=== PATIENT | female | born 1985 | race Caucasian/White ===

== ENCOUNTER 2021-07-25 18:02 | Emergency (ER) | payer BC ==
[2021-07-25 18:55] LABS: #Eosinphils 0.1 10x3/uL (0.0-0.5); #Monocytes 0.6 10x3/uL (0.0-1.1); #Neutrophils 5.3 10x3/uL (1.5-8.4); %Basophils 0.4 % (0.0-2.0); %Eosinophils 0.9 % (0.0-6.0); %Lymphocytes 26.4 % (18.0-47.0); %Monocytes 7.3 % (0.0-10.0); %Neutrophils 64.6 % (40.0-75.0); Hemoglobin 13.9 g/dL (12.0-15.5); Mean Corpuscular HGB CONC 32.9 g/dL (32.0-36.0); Mean Corpuscular Hemoglobin 32.5 pg (27.0-33.0); Mean Corpuscular Volume 98.8 fl (81.6-98.3); Mean Platelet Volume 9.6 fl (7.4-10.4); Platelet Count 244 10x3/uL (150-450); RBC Distribution Width 11.9 % (11.5-14.5); Red Blood Cell (RBC) Count 4.28 10x6/uL (3.90-5.03); White Blood Cell (WBC) Count 8.1 10x3/uL (3.5-10.5)
== END 2021-07-25 20:05 | disposition home or self-care (01) ==
LOC: CSHERS 18:02
DX: O20.0 Threatened abortion (principal); Z3A.01 Less than 8 weeks gestation of pregnancy
CPT/HCPCS: 76856; 84702; 85025; 86900; 86901

== ENCOUNTER 2021-12-25 01:53 | Day surgery (SDC) | payer BC ==
[2021-12-25 02:16] VITALS: BMI 31.4
[2021-12-25] MEDS ORDERED: hydrALAZINE 20 MG/ML VIAL SLOW IVP PRN (02:51)
[2021-12-25 03:15] LABS: #Eosinphils 0.2 10x3/uL (0.0-0.5); #Monocytes 0.8 10x3/uL (0.0-1.1); #Neutrophils 6.2 10x3/uL (1.5-8.4); %Basophils 0.4 % (0.0-2.0); %Eosinophils 1.7 % (0.0-6.0); %Lymphocytes 25.1 % (18.0-47.0); %Monocytes 7.9 % (0.0-10.0); Hemoglobin 11.5 g/dL (12.0-15.5); Mean Corpuscular HGB CONC 34.2 g/dL (32.0-36.0); Mean Corpuscular Hemoglobin 33.7 pg (27.0-33.0); Mean Corpuscular Volume 98.5 fl (81.6-98.3); Platelet Count 212 10x3/uL (150-450); RBC Distribution Width 12.3 % (11.5-14.5); Red Blood Cell (RBC) Count 3.41 10x6/uL (3.90-5.03); White Blood Cell (WBC) Count 9.6 10x3/uL (3.5-10.5)
[2021-12-25 03:29] LABS: ALT (SGPT) 17 U/L (8-55); AST (SGOT) 12 U/L (5-34); Albumin 3.6 g/dL (3.5-5.0); Alkaline Phosphatase 95 U/L (40-110); Anion Gap 16 mmol/L (10-20); BUN (Urea Nitrogen) 9 mg/dL (7.0-18.7); Bilirubin, Total 0.2 mg/dL (0.2-1.2); Calc. Creatinine Clearance 182 mL/min (70-130); Calcium 9.4 mg/dL (7.8-10.44); Carbon Dioxide 20 mmol/L (22-29); Chloride 106 mmol/L (98-107); Globulin 3.1 g/dL (2.4-3.5); Glucose 88 mg/dL (70-105); Potassium 3.5 mmol/L (3.5-5.1); Protein, Total 6.7 g/dL (6.0-8.3); Sodium 138 mmol/L (136-145)
[2021-12-25 03:41] LABS: Creatinine, Urine Less than 20.00 mg/dL (47-110); Protein, Urine Random Quant Less than 10 mg/dL (1-14)
== END 2021-12-25 04:31 | disposition home or self-care (01) ==
LOC: CSHLD/OP 01:53
PROVIDERS: ATTEND Obstetrics & Gynecology
DX: O10.913 Unspecified pre-existing hypertension complicating pregnancy, third trimester (principal); O99.353 Diseases of the nervous system complicating pregnancy, third trimester; G43.909 Migraine, unspecified, not intractable, without status migrainosus; O99.343 Other mental disorders complicating pregnancy, third trimester; F31.9 Bipolar disorder, unspecified; O09.523 Supervision of elderly multigravida, third trimester; Z3A.28 28 weeks gestation of pregnancy; Z79.82 Long term (current) use of aspirin; Z79.899 Other long term (current) drug therapy; Z88.2 Allergy status to sulfonamides; Z91.040 Latex allergy status
CPT/HCPCS: 36415; 80053; 80178; 82570; 84156; 85025

== ENCOUNTER 2022-01-29 20:40 | Inpatient (IN) | payer BC ==
[2022-01-29] MEDS ORDERED: hydrALAZINE 20 MG/ML VIAL SLOW IVP PRN (21:01)
[2022-01-29 21:06] VITALS: BMI 31.6
[2022-01-29] MEDS ORDERED: Lorazepam 2 MG/ML VIAL SLOW IVP PRN (21:16)
[2022-01-29] MEDS ORDERED: Butorphanol Tartrate 1 MG/ML VIAL SLOW IVP PRN (21:16)
[2022-01-29] MEDS ORDERED: Calcium Gluc 4.6 MEQ/10 ML (100 MG/ML) SLOW IVP PRN (21:16)
[2022-01-29] MEDS ORDERED: Ondansetron PF 4 MG/2 ML Vial IVP PRN (21:16)
[2022-01-29] MEDS ORDERED: Promethazine HCl 25 MG/ML VIAL IM PRN (21:16)
[2022-01-29] MEDS ORDERED: Lactated Ringer's 1,000 ML IV SCH (21:30)
[2022-01-29] MEDS ORDERED: diphenhydrAMINE 50 MG/ML VIAL IVP SCH (21:30)
[2022-01-29] MEDS ORDERED: Metoclopramide HCl 10 MG/2 ML VIAL IVP SCH (21:30)
[2022-01-29 21:45] LABS: Creatinine, Urine 44.15 mg/dL (47-110); Protein, Urine Random Quant Less than 10 mg/dL (1-14)
[2022-01-29] MEDS: Betamet Acet/Betamet Na Ph 30 MG/5 ML VIAL IM SCH (21:58)
[2022-01-29] MEDS ORDERED: NIFEdipine XL 60 MG TAB PO SCH (22:00)
[2022-01-29] MEDS: Magnesium Sulfate 20 gm/500 ml 20 GM/500 ML BAG IVPB SCH (22:10)
[2022-01-29 22:17] LABS: #Eosinphils 0.1 10x3/uL (0.0-0.5); #Monocytes 0.7 10x3/uL (0.0-1.1); #Neutrophils 5.5 10x3/uL (1.5-8.4); %Basophils 0.4 % (0.0-2.0); %Eosinophils 0.9 % (0.0-6.0); %Lymphocytes 25.3 % (18.0-47.0); %Monocytes 7.8 % (0.0-10.0); Hemoglobin 11.8 g/dL (12.0-15.5); Mean Corpuscular HGB CONC 34.5 g/dL (32.0-36.0); Mean Corpuscular Hemoglobin 33.2 pg (27.0-33.0); Mean Corpuscular Volume 96.3 fl (81.6-98.3); Mean Platelet Volume 10.8 fl (7.4-10.4); Platelet Count 196 10x3/uL (150-450); RBC Distribution Width 12.9 % (11.5-14.5); Red Blood Cell (RBC) Count 3.55 10x6/uL (3.90-5.03); White Blood Cell (WBC) Count 8.5 10x3/uL (3.5-10.5)
[2022-01-29 22:27] LABS: ALT (SGPT) 13 U/L (8-55); AST (SGOT) 14 U/L (5-34); Albumin 3.6 g/dL (3.5-5.0); Alkaline Phosphatase 131 U/L (40-110); Anion Gap 14 mmol/L (10-20); BUN (Urea Nitrogen) 9 mg/dL (7.0-18.7); Bilirubin, Total 0.2 mg/dL (0.2-1.2); Calc. Creatinine Clearance 189 mL/min (70-130); Calcium 9.1 mg/dL (7.8-10.44); Carbon Dioxide 19 mmol/L (22-29); Chloride 108 mmol/L (98-107); Estimated GFR 120; Globulin 2.6 g/dL (2.4-3.5); Glucose 94 mg/dL (70-105); Potassium 3.7 mmol/L (3.5-5.1); Protein, Total 6.2 g/dL (6.0-8.3); Sodium 137 mmol/L (136-145)
[2022-01-29 22:46] LABS: Hep B Surf Ag Non-Reactive S/CO (NonReactive); Syphilis Antibody Nonreactive (Nonreactive); Syphilis Antibody Index 0.02 S/CO (<1.00 Non-Reactive)
[2022-01-29 22:48] LABS: HBSAg Index 0.18 S/CO (0-0.99)
[2022-01-29] MEDS ORDERED: valACYclovir 500 MG TAB PO SCH ×2 (22:54→23:15)
[2022-01-29] MEDS ORDERED: Aspirin Chewable 81 MG TAB PO SCH (23:15)
[2022-01-29] MEDS ORDERED: Prenatal Vitamin 1 TAB PO SCH (23:15)
[2022-01-30 03:47] LABS: SARS-CoV-2 NAA Rapid Test DETECTED (NotDetected)
[2022-01-30] MEDS ORDERED: Acetaminophen 500 MG TAB PO SCH (05:45)
[2022-01-30] MEDS: Magnesium Sulfate 20 gm/500 ml 20 GM/500 ML BAG IVPB SCH (06:39)
[2022-01-30] MEDS ORDERED: valACYclovir 500 MG TAB PO SCH ×2 (09:00)
[2022-01-30] MEDS ORDERED: Prenatal Vitamin 1 TAB PO SCH (09:00)
[2022-01-30] MEDS ORDERED: Aspirin Chewable 81 MG TAB PO SCH (09:00)
[2022-01-30] MEDS: Betamet Acet/Betamet Na Ph 30 MG/5 ML VIAL IM SCH (18:03)
== END 2022-01-30 18:18 | disposition home or self-care (01) | DRG 831 ==
LOC: CSHLD/OP 20:40 → CSHLD 21:17 → OBSVTOIN 21:18 → UNDOADMOB 01-30 00:57 → CSHLD 01-30 00:57
PROVIDERS: ADMIT Obstetrics & Gynecology; ATTEND Obstetrics & Gynecology
PROC: 8E0ZXY6 Isolation (ICD-10-PCS; principal; 2022-01-29)
DX: O11.3 Pre-existing hypertension with pre-eclampsia, third trimester (principal); U07.1 COVID-19; O98.513 Other viral diseases complicating pregnancy, third trimester; F31.9 Bipolar disorder, unspecified; F41.9 Anxiety disorder, unspecified; G43.909 Migraine, unspecified, not intractable, without status migrainosus; O99.353 Diseases of the nervous system complicating pregnancy, third trimester; O10.913 Unspecified pre-existing hypertension complicating pregnancy, third trimester; O99.343 Other mental disorders complicating pregnancy, third trimester; O24.410 Gestational diabetes mellitus in pregnancy, diet controlled; B00.9 Herpesviral infection, unspecified; Z3A.33 33 weeks gestation of pregnancy; Z79.899 Other long term (current) drug therapy; Z79.82 Long term (current) use of aspirin; Z88.2 Allergy status to sulfonamides; Z91.040 Latex allergy status
CPT/HCPCS: 36416; 51702; 80053; 82570; 84156; 85025; 86780; 86850; 86900; 86901; 87340; 99285; J0360; J0702; J1200; J2765; J3475; U0002

== ENCOUNTER 2022-02-09 11:01 | Inpatient (IN) | payer BC ==
[~2022-02-09 11:01] MED LIST: Bupivacaine/Epinephrine 0.25% 30 ML VIAL ONE
[2022-02-09 12:15] VITALS: BMI 31.6
[2022-02-09] MEDS ORDERED: hydrALAZINE 20 MG/ML VIAL SLOW IVP PRN ×2 (13:06→17:34)
[2022-02-09] MEDS ORDERED: Morphine 10 MG/ML VIAL SLOW IVP SCH (13:15)
[2022-02-09] MEDS ORDERED: Magnesium Sulfate 20 gm/500 ml 0 GM/0 ML BAG ONE (13:18)
[2022-02-09] MEDS: Magnesium 2 GM/50 ML(in water) 2 GM in Premix Bag 1 BAG IVPB SCH ×2 (13:30→15:53)
[2022-02-09 13:36] LABS: Hemoglobin 12.2 g/dL (12.0-15.5); Mean Corpuscular HGB CONC 33.2 g/dL (32.0-36.0); Mean Corpuscular Volume 99.5 fl (81.6-98.3); Mean Platelet Volume 10.9 fl (7.4-10.4); Platelet Count 194 10x3/uL (150-450); RBC Distribution Width 12.9 % (11.5-14.5); White Blood Cell (WBC) Count 10.1 10x3/uL (3.5-10.5)
[2022-02-09 14:03] LABS: ALT (SGPT) 19 U/L (8-55); AST (SGOT) 22 U/L (5-34); Albumin 3.7 g/dL (3.5-5.0); Alkaline Phosphatase 142 U/L (40-110); Anion Gap 16 mmol/L (10-20); BUN (Urea Nitrogen) 8 mg/dL (7.0-18.7); Bilirubin, Total 0.4 mg/dL (0.2-1.2); Calc. Creatinine Clearance 197 mL/min (70-130); Calcium 10.3 mg/dL (7.8-10.44); Carbon Dioxide 17 mmol/L (22-29); Chloride 107 mmol/L (98-107); Estimated GFR 121; Globulin 3.5 g/dL (2.4-3.5); Glucose 71 mg/dL (70-105); Protein, Total 7.2 g/dL (6.0-8.3); Sodium 136 mmol/L (136-145); Uric Acid 4.1 mg/dL (2.6-6.0)
[2022-02-09] MEDS ORDERED: Lorazepam 2 MG/ML VIAL SLOW IVP PRN ×2 (17:24→17:25)
[2022-02-09] MEDS ORDERED: Calcium Gluc 4.6 MEQ/10 ML (100 MG/ML) SLOW IVP PRN ×2 (17:24→17:25)
[2022-02-09] MEDS ORDERED: Labetalol HCl 100 MG/20 ML VIAL SLOW IVP PRN ×2 (17:25)
[2022-02-09] MEDS ORDERED: Promethazine HCl 25 MG/ML VIAL IM PRN (17:34)
[2022-02-09] MEDS ORDERED: Ondansetron PF 4 MG/2 ML Vial IVP PRN (17:34)
[2022-02-09] MEDS: Magnesium Sulfate 20 gm/500 ml 20 GM/500 ML BAG IVPB SCH (17:46)
[2022-02-09] MEDS ORDERED: Ibuprofen 800 MG TAB PO PRN (17:48)
[2022-02-09] MEDS ORDERED: Lidocaine 1% (PF) 30 ML VIAL SC PRN (17:48)
[2022-02-09] MEDS ORDERED: HYDROcodone/Acetaminophen 5/325 mg Tablet PO PRN (17:48)
[2022-02-09] MEDS ORDERED: Morphine 4 MG/ML VIAL SLOW IVP SCH (18:00)
[2022-02-09] MEDS ORDERED: Penicillin G Potassium 5 MILL.UNITS in Sodium Chloride 0.9% 100 ML IVPB SCH (18:00)
[2022-02-09] MEDS: Misoprostol 100 MCG TAB VAG SCH ×4 (18:01→21:55)
[2022-02-09] MEDS ORDERED: Misoprostol 100 MCG TAB ONE (18:01)
[2022-02-09 18:38] LABS: Hep B Surf Ag Non-Reactive S/CO (NonReactive); Syphilis Antibody Nonreactive (Nonreactive); Syphilis Antibody Index 0.02 S/CO (<1.00 Non-Reactive)
[2022-02-09 19:02] LABS: HBSAg Index 0.17 S/CO (0-0.99)
[2022-02-09] MEDS: valACYclovir 500 MG TAB PO SCH (21:06)
[2022-02-09 21:09] LABS: Glucose 71 mg/dL (70-105)
[2022-02-10] MEDS: Penicillin G 2.5 MILL.units 2.5 MILL.UNITS in Premix Bag 1 BAG IVPB SCH ×6 (00:42→21:48)
[2022-02-10] MEDS: Misoprostol 100 MCG TAB VAG SCH ×4 (01:54→21:48)
[2022-02-10] MEDS: Magnesium Sulfate 20 gm/500 ml 20 GM/500 ML BAG IVPB SCH ×2 (02:17→22:38)
[2022-02-10] MEDS: NIFEdipine XL 60 MG TAB PO SCH (09:49)
[2022-02-10] MEDS: valACYclovir 500 MG TAB PO SCH ×2 (09:49→21:48)
[2022-02-10] MEDS ORDERED: Fentanyl 2 mcg/Bup 0.1% Cadd 100 ML ONE (10:20)
[2022-02-10] MEDS: Fentanyl 2 mcg/Bupivacaine 0.1% Cassette 100 ML EPIDURAL SCH ×3 (10:42→21:58)
[2022-02-10] MEDS ORDERED: ePHEDrine Sulfate 50 MG/10 ML VIAL SLOW IVP PRN (11:13)
[2022-02-10] MEDS ORDERED: Moisturizing Cream (Eucerin) 113 GM JAR TOP PRN (11:13)
[2022-02-10] MEDS ORDERED: Ondansetron PF 4 MG/2 ML Vial IVP PRN (11:13)
[2022-02-10] MEDS ORDERED: Lactated Ringer's 500 ML IV PRN (11:13)
[2022-02-10] MEDS ORDERED: Naloxone HCl 0.4 mg/ml Vial IVP PRN ×2 (11:13)
[2022-02-10] MEDS ORDERED: Promethazine HCl 25 MG/ML VIAL IM PRN (11:13)
[2022-02-10] MEDS ORDERED: Communication Order-Pharmacy FS SCH (11:15)
[2022-02-10] MEDS ORDERED: OXYTOCIN ONE (12:06)
[2022-02-10] MEDS ORDERED: SODIUM CHLORIDE ONE (12:06)
[2022-02-10] MEDS ORDERED: NS w/ Oxytocin 30 units 500 ML IV SCH (12:30)
[2022-02-10] MEDS: NS w/ Oxytocin 30 units 500 ML IV SCH ×2 (13:09→23:34)
[2022-02-10] MEDS: Lactated Ringer's 1,000 ML IV SCH ×2 (19:29→21:50)
[2022-02-10] MEDS ORDERED: Methylergonovine 0.2 MG/ML VIAL ONE (23:08)
[2022-02-10] MEDS ORDERED: Carboprost 250 MCG/ML AMP ONE (23:09)
[2022-02-10] MEDS ORDERED: Boostrix 0.5 ML (Tdap) VIAL IM ONE (23:28)
[2022-02-10] MEDS ORDERED: Bisacodyl 10 MG SUPP PR PRN (23:28)
[2022-02-10] MEDS ORDERED: Milk Of Magnesia 30 ML UDCUP PO PRN (23:28)
[2022-02-10] MEDS ORDERED: hydrALAZINE 20 MG/ML VIAL SLOW IVP PRN (23:28)
[2022-02-11] MEDS: Misoprostol 100 MCG TAB VAG SCH (01:38)
[2022-02-11] MEDS: Penicillin G 2.5 MILL.units 2.5 MILL.UNITS in Premix Bag 1 BAG IVPB SCH (02:06)
[2022-02-11 04:51] LABS: #Eosinphils 0.1 10x3/uL (0.0-0.5); #Neutrophils 10.9 10x3/uL (1.5-8.4); %Basophils 0.3 % (0.0-2.0); %Eosinophils 0.5 % (0.0-6.0); %Lymphocytes 10.5 % (18.0-47.0); %Monocytes 7.7 % (0.0-10.0); %Neutrophils 80.6 % (40.0-75.0); Hemoglobin 11.2 g/dL (12.0-15.5); Mean Corpuscular HGB CONC 33.9 g/dL (32.0-36.0); Mean Corpuscular Hemoglobin 33.5 pg (27.0-33.0); Mean Corpuscular Volume 98.8 fl (81.6-98.3); Mean Platelet Volume 10.5 fl (7.4-10.4); Platelet Count 168 10x3/uL (150-450); RBC Distribution Width 13.2 % (11.5-14.5); Red Blood Cell (RBC) Count 3.34 10x6/uL (3.90-5.03); White Blood Cell (WBC) Count 13.5 10x3/uL (3.5-10.5)
[2022-02-11 05:04] LABS: ALT (SGPT) 14 U/L (8-55); AST (SGOT) 12 U/L (5-34); Alkaline Phosphatase 125 U/L (40-110); Anion Gap 12 mmol/L (10-20); BUN (Urea Nitrogen) 5 mg/dL (7.0-18.7); Bilirubin, Total 0.4 mg/dL (0.2-1.2); Calc. Creatinine Clearance 221 mL/min (70-130); Calcium 7.3 mg/dL (7.8-10.44); Carbon Dioxide 21 mmol/L (22-29); Chloride 108 mmol/L (98-107); Estimated GFR 124; Globulin 2.7 g/dL (2.4-3.5); Glucose 82 mg/dL (70-105); Potassium 3.8 mmol/L (3.5-5.1); Protein, Total 5.7 g/dL (6.0-8.3); Sodium 137 mmol/L (136-145)
[2022-02-11] MEDS: Lactated Ringer's 1,000 ML IV SCH ×2 (05:50→06:21)
[2022-02-11] MEDS: Acetaminophen 325 MG TAB PO PRN ×2 (06:20→14:15)
[2022-02-11] MEDS: Ferrous Sulfate 325 MG TAB PO SCH ×2 (08:47→16:21)
[2022-02-11] MEDS: NIFEdipine XL 60 MG TAB PO SCH (09:27)
[2022-02-11] MEDS: Ibuprofen 800 MG TAB PO PRN ×2 (09:27→17:47)
[2022-02-11] MEDS: Docusate 100 MG CAP PO SCH ×2 (09:28→21:50)
[2022-02-12] MEDS: Lactated Ringer's 1,000 ML IV SCH ×2 (08:53→15:07)
[2022-02-12] MEDS: Ferrous Sulfate 325 MG TAB PO SCH ×2 (08:53→15:48)
[2022-02-12] MEDS: Docusate 100 MG CAP PO SCH ×2 (09:24→21:12)
[2022-02-12] MEDS: NIFEdipine XL 60 MG TAB PO SCH (09:24)
[2022-02-13] MEDS: Lactated Ringer's 1,000 ML IV SCH (07:21)
[2022-02-13] MEDS: NIFEdipine XL 60 MG TAB PO SCH (08:53)
[2022-02-13] MEDS: Docusate 100 MG CAP PO SCH (08:53)
[2022-02-13] MEDS: Ferrous Sulfate 325 MG TAB PO SCH (08:54)
[2022-02-13 11:11] VITALS: BP 127/74; TEMP 98.1
== END 2022-02-13 12:10 | disposition home or self-care (01) | DRG 806 ==
LOC: CSHLD/OP 11:01 → CSHLD 19:01 → CSHPP 02-11 18:02
PROVIDERS: ADMIT Obstetrics & Gynecology; ATTEND Obstetrics & Gynecology
PROC: 3E0P7VZ Introduction of Hormone into Female Reproductive, Via Natural or Artificial Opening (ICD-10-PCS; principal; 2022-02-10)
PROC: 0U7C7ZZ Dilation of Cervix, Via Natural or Artificial Opening (ICD-10-PCS; 2022-02-10)
PROC: 10907ZC Drainage of Amniotic Fluid, Therapeutic from Products of Conception, Via Natural or Artificial Opening (ICD-10-PCS; 2022-02-10)
PROC: 10H07YZ Insertion of Other Device into Products of Conception, Via Natural or Artificial Opening (ICD-10-PCS; 2022-02-10)
PROC: 10E0XZZ Delivery of Products of Conception, External Approach (ICD-10-PCS; 2022-02-11)
DX: O11.4 Pre-existing hypertension with pre-eclampsia, complicating childbirth (principal); O98.52 Other viral diseases complicating childbirth; Z37.0 Single live birth; O99.354 Diseases of the nervous system complicating childbirth; O10.92 Unspecified pre-existing hypertension complicating childbirth; Z3A.35 35 weeks gestation of pregnancy; F31.9 Bipolar disorder, unspecified; O99.344 Other mental disorders complicating childbirth; Z79.899 Other long term (current) drug therapy; B00.9 Herpesviral infection, unspecified; O69.81X0 Labor and delivery complicated by cord around neck, without compression, not applicable or unspecified; G43.909 Migraine, unspecified, not intractable, without status migrainosus; Z91.040 Latex allergy status; Z88.2 Allergy status to sulfonamides; Z88.8 Allergy status to other drugs, medicaments and biological substances; Z79.82 Long term (current) use of aspirin
CPT/HCPCS: 36415; 51702; 80053; 84156; 84550; 85025; 85027; 86780; 86850; 86900; 86901; 87340; 99285; J0360; J0595; J2270; J2405; J2540; J2590; J3475; J3490; J7120